=== PATIENT | male | born 1945 | race Caucasian/White ===

== ENCOUNTER 2018-10-27 06:25 | Observation (INO) ==
[2018-10-27] MEDS ORDERED: Pantoprazole Inj 40 MG Vial IV.PUSH ONE (06:41)
--- NOTE | 2018-10-27 06:45 | ED ---
HPI General Chief complaint: GI Bleed Stated complaint: GI Time Seen by Provider: 10/27/18 06:41 Source: patient Mode of arrival: ambulatory Limitations: no limitations History of Present Illness HPI Narrative: 73-year-old male patient with history of hypertension, CAD, currently on aspirin and Plavix, presents to the ER today because he states that he has had about 5 episodes of bloody diarrhea. He did have some abdominal cramping discomfort last night. He denies any nausea, vomiting, fevers, chest pains, trouble breathing, or any other symptoms. He states that he has history of gastritis and gets upper and lower endoscopy done by Dr. Cee due to family history of colon cancer. He had one done last year and it was fine. No history of gastric ulcers. He has been taking Toradol for pain for the last 2 days. Modifying Factors: None Associated Signs & Symptoms: Blood in the stools, diarrhea Risk Factors: None Related Data Home Medications Medication Instructions Recorded Confirmed aspirin [Aspirin Low Dose] 81 mg PO DAILY 10/27/18 10/27/18 clopidogrel [Plavix] 75 mg PO DAILY 10/27/18 10/27/18 glucosamine sulfate [Glucosamine] 750 mg PO BID 10/27/18 10/27/18 hydrocodone-acetaminophen 2 tab PO Q4H 10/27/18 10/27/18 lisinopril 5 mg PO DAILY 10/27/18 10/27/18 lovastatin 20 mg PO DAILY 10/27/18 10/27/18 methocarbamol 750 mg PO QID 10/27/18 10/27/18 metoprolol tartrate 12.5 mg PO BID 10/27/18 10/27/18 temazepam [Restoril] 10/27/18 testosterone cypionate 200 mg IM QWEEK 10/27/18 10/27/18 Allergies Allergy/AdvReac Type Severity Reaction Status Date / Time oyster extract Allergy Severe ANAPHYLAXIS Verified 10/27/18 07:49 penicillin G Allergy Severe HIVES Verified 10/27/18 07:49 Review of Systems ROS: all other systems reviewed are negative PMFSH History History Provided By: Patient Medical History Medical History Bile salt-induced diarrhea (Acute) Chronic kidney disease (Acute) History of heart attack (Acute) Hx of skin malignancy (Acute) Surgical History Surgical History H/O neck surgery (Acute) History of back surgery (Acute) Hx of cholecystectomy (Acute) Social History Social History Substance History: No History of Abuse Smoking Status: Never smoker How Often Do You Have a Drink Containing Alcohol: Monthly or less Recent Travel in [facility] within the Last 8 Weeks: No Recent Out of Country Travel within the Last 8 Weeks: No Exam Narrative Exam Narrative: GENERAL: Well-developed elderly male patient currently in mild distress. Awake and oriented x3. SKIN: Focused skin assessment warm/dry. HEAD: Atraumatic. Normocephalic. EYES: Pupils equal and round. No scleral icterus. No injection or drainage. ENT: No nasal bleeding or discharge. Mucous membranes pink and moist. NECK: Trachea midline. No JVD. CARDIOVASCULAR: Regular rate and rhythm. No murmur appreciated. RESPIRATORY: No accessory muscle use. Clear to auscultation. Breath sounds equal bilaterally. GASTROINTESTINAL: Abdomen soft, non-tender, nondistended. Hepatic and splenic margins not palpable. RECTAL EXAM: No masses or tenderness, stool is red, Hemoccult positive. MUSCULOSKELETAL: No obvious deformities. No clubbing. No cyanosis. No edema. NEUROLOGICAL: Awake and alert. No obvious cranial nerve deficits. Motor grossly within normal limits. Normal speech. PSYCHIATRIC: Appropriate mood and affect; insight and judgment normal. Procedures Hemaprompt Stool Procedural Steps Taken: specimen placed in appropriate test area, developer placed on specimen and control areas and controls appropriately positive and negative Hemaprompt Stool Result: positive Course Initial Documented Vital Signs Temperature 97.5 F L 10/27/18 06:25 Pulse Rate 108 H 10/27/18 06:25 Respiratory Rate 18 10/27/18 06:25 Blood Pressure 133/69 10/27/18 06:25 Pulse Oximetry 96 10/27/18 06:25 Last Documented Vital Signs Temperature 97.5 F L 10/27/18 06:25 Pulse Rate 85 10/27/18 06:51 Respiratory Rate 18 10/27/18 06:30 Blood Pressure 101/66 10/27/18 06:30 Pulse Oximetry 95 10/27/18 06:51 Sign Out Sign Out Data: Patient Sign Out occurred on 10/27/18 at 07:05. Patient's care was discussed, and care was transferred from Yolanda Louis MD to Phillip Centeno DO. Sign Out Comment: Case is signed out to oncoming physician at 7 AM awaiting workup. Likely needs GI evaluation. Disposition based on workup and findings. Last updated by Yolanda Louis MD at 10/27/18 06:47 Medical Decision Making MDM Narrative Medical Screen Exam Complete: Yes Emergency Medical Condition: Yes Differential Diagnosis Differential Diagnosis: GI bleed versus coagulopathy versus gastroenteritis Lab Data Result diagrams: 10/27/18 06:47 10/27/18 06:47 Lab Results 10/27/18 10/27/18 10/27/18 Range/Units 06:47 06:47 06:47 WBC 6.4 (4.0-11.0) th/mm3 RBC 4.44 L (4.50-5.90) mil/mm3 Hgb 14.6 (13.0-17.0) gm/dL Hct 41.8 (39.0-51.0) % MCV 94.1 (80.0-100.0) fL MCH 33.0 (27.0-34.0) pg MCHC 35.0 (32.0-36.0) % RDW 13.9 (11.6-17.2) % Plt Count 157 (150-450) th/mm3 MPV 9.0 (7.0-11.0) fL Neut % (Auto) 67.8 (16.0-70.0) % Lymph % (Auto) 22.4 (9.0-44.0) % Andrews % (Auto) 7.4 (0.0-8.0) % Eos % (Auto) 1.7 (0.0-4.0) % Baso % (Auto) 0.7 (0.0-2.0) % Neut # (Auto) 4.4 (1.8-7.7) th/mm3 Lymph # (Auto) 1.4 (1.0-4.8) th/mm3 Andrews # (Auto) 0.5 (0.0-0.9) th/mm3 Eos # (Auto) 0.1 (0.0-0.4) th/mm3 Baso # (Auto) 0.0 (0.0-0.2) th/mm3 WBC Differential . Differential Comment Auto diff final PT 10.3 (9.8-11.6) sec INR 1.0 Ratio APTT 26.3 (23.4-31.7) sec Sodium 142 (136-145) meq/L Potassium 4.2 (3.5-5.1) meq/L Chloride 109 H (98-107) meq/L Carbon Dioxide 26.2 (21.0-32.0) meq/L Anion Gap 7 (5-15) meq/L BUN 18 (7-18) mg/dL Creatinine 1.51 H (0.60-1.30) mg/dL Estimated GFR 46 L (>89) mL/min Random Glucose 114 H (74-106) mg/dL Calcium 8.1 L (8.5-10.1) mg/dL Total Bilirubin 0.6 (0.2-1.0) mg/dL AST 22 (15-37) U/L ALT 35 (12-78) U/L Alkaline Phosphatase 66 (45-117) U/L Total Protein 6.1 L (6.4-8.2) g/dL Albumin 3.3 L (3.4-5.0) g/dL Blood Type Blood Type Recheck Antibody Screen 10/27/18 Range/Units 06:47 WBC (4.0-11.0) th/mm3 RBC (4.50-5.90) mil/mm3 Hgb (13.0-17.0) gm/dL Hct (39.0-51.0) % MCV (80.0-100.0) fL MCH (27.0-34.0) pg MCHC (32.0-36.0) % RDW (11.6-17.2) % Plt Count (150-450) th/mm3 MPV (7.0-11.0) fL Neut % (Auto) (16.0-70.0) % Lymph % (Auto) (9.0-44.0) % Andrews % (Auto) (0.0-8.0) % Eos % (Auto) (0.0-4.0) % Baso % (Auto) (0.0-2.0) % Neut # (Auto) (1.8-7.7) th/mm3 Lymph # (Auto) (1.0-4.8) th/mm3 Andrews # (Auto) (0.0-0.9) th/mm3 Eos # (Auto) (0.0-0.4) th/mm3 Baso # (Auto) (0.0-0.2) th/mm3 WBC Differential Differential Comment PT (9.8-11.6) sec INR Ratio APTT (23.4-31.7) sec Sodium (136-145) meq/L Potassium (3.5-5.1) meq/L Chloride (98-107) meq/L Carbon Dioxide (21.0-32.0) meq/L Anion Gap (5-15) meq/L BUN (7-18) mg/dL Creatinine (0.60-1.30) mg/dL Estimated GFR (>89) mL/min Random Glucose (74-106) mg/dL Calcium (8.5-10.1) mg/dL Total Bilirubin (0.2-1.0) mg/dL AST (15-37) U/L ALT (12-78) U/L Alkaline Phosphatase (45-117) U/L Total Protein (6.4-8.2) g/dL Albumin (3.4-5.0) g/dL Blood Type O Negative Blood Type Recheck Not needed Antibody Screen Negative Discharge Plan Discharge Disposition Patient Disposition: ED Admit(ED Internal Use Only) Discharge Condition Condition: Serious Discharge Order Discharge Orders: ED Use Only Admit Order (Routine); Ordered 10/27/18 Ordered By: Phillip Centeno Physicians Team ED Provider: Phillip Centeno Primary Care Provider: Goran Montague Rxs /Orders / Referrals /Forms Prescriptions: No Action glucosamine sulfate [Glucosamine] 500 mg Tablet 750 mg PO BID RF: 0 clopidogrel [Plavix] 75 mg Tablet 75 mg PO DAILY RF: 0 aspirin [Aspirin Low Dose] 81 mg Tablet,Delayed Release (Dr/Ec) 81 mg PO DAILY RF: 0 methocarbamol 750 mg Tablet 750 mg PO QID RF: 0 lisinopril 5 mg Tablet 5 mg PO DAILY RF: 0 lovastatin 20 mg Tablet 20 mg PO DAILY RF: 0 metoprolol tartrate 25 mg Tablet 12.5 mg PO BID RF: 0 temazepam [Restoril] 30 mg Capsule RF: 0 hydrocodone-acetaminophen 7.5-325 mg Tablet 2 tab PO Q4H RF: 0 testosterone cypionate 200 mg/mL Kit 200 mg IM QWEEK RF: 0 Discharge Instructions Patient Printed Instructions: Gastrointestinal Bleeding (ED) Discharge Interventions Interventions: Vital Signs Last Done: 10/27/18 06:30 Status ED Status: Admitted Patient
[2018-10-27 06:59] LABS: Baso % (Auto) 0.7 % (0.0-2.0); Eos # (Auto) 0.1 th/mm3 (0.0-0.4); Eos % (Auto) 1.7 % (0.0-4.0); Hematocrit 41.8 % (39.0-51.0); Hemoglobin 14.6 gm/dL (13.0-17.0); Lymph # (Auto) 1.4 th/mm3 (1.0-4.8); Lymph % (Auto) 22.4 % (9.0-44.0); Mean Corpuscular Volume 94.1 fL (80.0-100.0); Mono # (Auto) 0.5 th/mm3 (0.0-0.9); Mono % (Auto) 7.4 % (0.0-8.0); Neut # (Auto) 4.4 th/mm3 (1.8-7.7); Neut % (Auto) 67.8 % (16.0-70.0); Platelet Count 157 th/mm3 (150-450); Red Blood Count 4.44 mil/mm3 (4.50-5.90); Red Cell Distribution Width 13.9 % (11.6-17.2); White Blood Count 6.4 th/mm3 (4.0-11.0)
[2018-10-27 07:08] LABS: Activated Partial Thrombo Time 26.3 sec (23.4-31.7); Prothrombin Time 10.3 sec (9.8-11.6)
[2018-10-27 07:29] LABS: Alanine Aminotransferase 35 U/L (12-78); Albumin 3.3 g/dL (3.4-5.0); Anion Gap 7 meq/L (5-15); Aspartate Aminotransferase 22 U/L (15-37); Blood Urea Nitrogen 18 mg/dL (7-18); Calcium 8.1 mg/dL (8.5-10.1); Carbon Dioxide 26.2 meq/L (21.0-32.0); Chloride 109 meq/L (98-107); Glomerular Filtration Rate 46 mL/min (>89); Glucose,Random 114 mg/dL (74-106); Potassium 4.2 meq/L (3.5-5.1); Sodium 142 meq/L (136-145)
[2018-10-27 07:32] LABS: Alkaline Phosphatase 66 U/L (45-117); Total Protein 6.1 g/dL (6.4-8.2)
[2018-10-27] MEDS ORDERED: Sod Chloride 0.9% Inj 1,000 ML IV.SIG SCH (07:45)
[2018-10-27] MEDS ORDERED: Acetaminophen 325 MG Tablet PO PRN (09:36)
--- NOTE | 2018-10-27 09:55 | P.HPIM ---
History of Present Illness Primary Care Physician: Goran Montague History of Present Illness: Patient is a pleasant 73-year-old male with history of HTN, coronary artery disease, hyperlipidemia, Abarca's esophagus, and chronic kidney disease. Patient presented to the [place] ER (10/27/18) with complaint of 5 episodes of bloody diarrhea. Pt had additional 6 episodes of bloody diarrhea here at [place]. Patient also complained of abdominal cramping which occurred. Patient denied nausea, vomiting, fever. Patient is a former smoker and drinks alcohol daily. Patient has history of coronary artery disease and is taking aspirin and Plavix. Patient has been utilizing (one) left over oral Toradol yesterday for tendonitis. Hemoglobin in the ER was 14.6. Platelet count 157. Coagulation panel within normal limits. BMP showed creatinine elevated at 1.51. Review of outpatient records shows patient's creatinine has been between 1.2 and 1.4 for the last several years with GFR between 55 and 60. Patient's liver enzymes were within normal limits. Patient had an EGD with Dr. Cee (03/12/18) which showed gastritis, esophagitis, and small hiatal hernia. Pathology showed no acute findings. Patient had a colonoscopy with Dr. Cee (03/12/18) which showed diverticulosis in the sigmoid and descending colon and grade 1 hemorrhoids. PMH: 1) hypertension 2) coronary artery disease - pt follows with Dr. Griffith - last [facility] (09/12/16) - small vessel diagonal branch disease 3) hyperlipidemia 4) Abarca's esophagus 5) gastritis 6) diverticulosis 7) chronic kidney disease, stage 3 8) hypogonadism 9) senile purpura 10) insomnia 11) vitamin D deficiency 12) BPH 13) GERD 14) hemorrhoids PSH: 1) laparoscopic cholecystectomy 2) treatment of metatarsal fracture 3) treatment of tibial fracture 4) colonoscopy 5) EGD 6) bilateral LASIK surgery 7) inguinal hernia repair, right 8) ERCP with endoscopic sphincterotomy - perfomred by Dr. Iglesias (03/24/18) revealing mutiple large CBD stones 9) vasectomy 10) umbilical hernia repair FHX: Noncontributory SHX: - - retired - former smoker --> when teenager - drinks alcohol daily. 2-3 mixed drinks daily (rum&coke) and occasional beer - no illicit street drugs ALL: oysters, PCN Medications and Allergies Allergies Allergy/AdvReac Type Severity Reaction Status Date / Time oyster extract Allergy Severe ANAPHYLAXIS Verified 10/27/18 07:49 penicillin G Allergy Severe HIVES Verified 10/27/18 07:49 Home Medications Medication Instructions Recorded Confirmed Type aspirin [Aspirin Low Dose] 81 mg PO DAILY 10/27/18 10/27/18 History glucosamine sulfate [Glucosamine] 750 mg PO BID 10/27/18 10/27/18 History hydrocodone-acetaminophen 2 tab PO Q4H 10/27/18 10/27/18 History lisinopril 5 mg PO DAILY 10/27/18 10/27/18 History lovastatin 20 mg PO DAILY 10/27/18 10/27/18 History methocarbamol 750 mg PO QID 10/27/18 10/27/18 History metoprolol tartrate 12.5 mg PO BID 10/27/18 10/27/18 History temazepam [Restoril] 10/27/18 History testosterone cypionate 200 mg IM QWEEK 10/27/18 10/27/18 History Active Medications: Active Medications Acetaminophen (Tylenol) 650 mg PO Q4H PRN PRN Reason: Temp > 100.4 Al Hydroxide/Mg Hydroxide (Milk Of Magnesia Liq) 30 ml PO Q12H PRN PRN Reason: Mild Constipation Ondansetron HCl (Zofran Inj) 4 mg IV.PUSH Q6H PRN PRN Reason: NAUSEA OR VOMITING Sodium Chloride (Ns Flush) 2 ml IV.FLUSH BID PAUL Sodium Chloride (Ns Flush) 2 ml IV.FLUSH PRN PRN PRN Reason: FLUSH AFTER USING IV ACCESS Physical Exam Vital signs: Last Vital Signs Temp 97.5 F L 10/27/18 06:25 Pulse 85 10/27/18 06:51 Resp 18 10/27/18 06:30 BP 101/66 10/27/18 06:30 Pulse Ox 95 10/27/18 06:51 Results Labs CBC & Chem 7: 10/28/18 13:09 10/28/18 04:37 Caprini VTE Risk Assessment Caprini VTE Risk Assessment: Moderate/High Risk (score >= 2) Caprini Risk Assessment Model: Point Value = 1 Point Value = 2 Point Value = 3 Point Value = 5 Age 41-60 Minor surgery BMI > 25 kg/m2 Swollen legs Varicose veins or History of unexplained or recurrent spontaneous Oral contraceptives or hormone replacement Sepsis (< 1 month) Serious lung disease, including pneumonia (< 1 month) Abnormal pulmonary function Acute myocardial infarction Congestive heart failure (< 1 month) History of inflammatory bowel disease Medical patient at bed rest Age 61-74 Arthroscopic surgery Major open surgery (> 45 min) Laparoscopic surgery (> 45 min) Malignancy Confined to bed (> 72 hours) Immobilizing plaster cast Central venous access Age >= 75 History of VTE Family history of VTE Factor V Leiden Prothrombin [id number] Lupus anticoagulant Anticardiolipin antibodies Elevated serum homocysteine Heparin-induced thrombocytopenia Other congenital or acquired thrombophilia Stroke (< 1 month) Elective arthroplasty Hip, pelvis, or leg fracture Acute spinal cord injury (< 1 month) Prophylaxis Regimen: Total Risk Factor Score Risk Level Prophylaxis Regimen 0-1 Low Early ambulation 2 Moderate Order ONE of the following: *Sequential Compression Device (SCD) *Heparin 5000 units SQ BID 3-4 Higher Order ONE of the following medications: *Heparin 5000 units SQ TID *Enoxaparin/Lovenox 40 mg SQ daily (WT < 150 kg, CrCl > 30 mL/min) *Enoxaparin/Lovenox 30 mg SQ daily (WT < 150 kg, CrCl > 10-29 mL/min) *Enoxaparin/Lovenox 30 mg SQ BID (WT < 150 kg, CrCl > 30 mL/min) AND/OR *Sequential Compression Device (SCD) 5 or more Highest Order ONE of the following medications: *Heparin 5000 units SQ TID (Preferred with Epidurals) *Enoxaparin/Lovenox 40 mg SQ daily (WT < 150 kg, CrCl > 30 mL/min) *Enoxaparin/Lovenox 30 mg SQ daily (WT < 150 kg, CrCl > 10-29 mL/min) *Enoxaparin/Lovenox 30 mg SQ BID (WT < 150 kg, CrCl > 30 mL/min) AND *Sequential Compression Device (SCD) Assessment and Plan Plan Patient is a pleasant 73-year-old male with history of HTN, coronary artery disease, hyperlipidemia, Abarca's esophagus, and chronic kidney disease. Patient presented to the [place] ER (10/27/18) with complaint of 5 episodes of bloody diarrhea. Pt had additional 6 episodes of bloody diarrhea here at [place]. Patient also complained of abdominal cramping which occurred. Patient denied nausea, vomiting, fever. Patient is a former smoker and drinks alcohol daily. Patient has history of coronary artery disease and is taking aspirin and Plavix. Patient has been utilizing (one) left over oral Toradol yesterday for tendonitis. Hemoglobin in the ER was 14.6. Platelet count 157. Coagulation panel within normal limits. BMP showed creatinine elevated at 1.51. Review of outpatient records shows patient's creatinine has been between 1.2 and 1.4 for the last several years with GFR between 55 and 60. Patient's liver enzymes were within normal limits. Patient had an EGD with Dr. Cee (03/12/18) which showed gastritis, esophagitis, and small hiatal hernia. Pathology showed no acute findings. Patient had a colonoscopy with Dr. Cee (03/12/18) which showed diverticulosis in the sigmoid and descending colon and grade 1 hemorrhoids. 1) GIB - h/o abarca's esophagus, gastritis, small external hemorroids - Pt taking plavix & ASA for CAD - recent use of toradol - start IV protonix - follow Hg level - obtain CT A/P - Consult GI - supportive care - SCDs for DVT prophylaxis 2) CAD - pt follows with DrBushra - ASA, plavix, imdur, lisinopril, metoprolol, lovastatin 3) HTN, essential - lisinopril, metoprolol Attending Attestation The exam, history, and the medical decision-making described in the above note were completed with the assistance of the mid-level provider. I reviewed and agree with the findings presented. I attest that I had a [id number] encounter with the patient on the same day, and personally performed and documented my assessment and findings in the medical record. Patient examined. Assessment and plan formulated with Yanet Hopson PA-C. I agree with the above.
--- NOTE | 2018-10-27 09:56 | XR ---
EXAM DATE: 10/27/2018 9:52 AM EST AGE/SEX: 73 years / Male INDICATIONS: Evaluate lung status. Possible G.I bleed. CLINICAL DATA: This is the patient's initial encounter. Patient reports that signs and symptoms have been present for 1 day and indicates a pain score of 0/10. MEDICAL/SURGICAL HISTORY: None. None. [place] [facility] [place]. . FINDINGS: The heart size is normal. There is increased density at the medial right base and infrahilar region. The left lung is clear. No effusions are seen. There is an anterior cervical fusion plate present. CONCLUSION: Right medial base consolidation or atelectasis. Electronically signed by: Howard Peraza MD Board Certified Radiologist 10/27/2018 9:55 AM EST
[2018-10-27] MEDS ORDERED: Methocarbamol 500 MG Tablet PO PRN (11:00)
[2018-10-27] MEDS: Metoprolol Tartrate 25 MG Tablet PO SCH ×2 (11:50→21:07)
[2018-10-27] MEDS: Lisinopril 5 MG Tablet PO SCH (11:50)
--- NOTE | 2018-10-27 16:34 | P.CONGI ---
History of Present Illness Chief complaint: GI bleed due to medication use,coagulopathy History of Present Illness: This is a pleasant 73-year-old male with history of HTN, coronary artery disease on Plavix and ASA, hyperlipidemia, and chronic kidney disease who presents with BRBPR started 5 am. He showed photos on the phone, had about 11 episodes of rectal bleeding. Patient denies nausea, vomiting, abd pain or change in bowels. Patient drinks alcohol daily. States he had left over Toradol which he took the day prior due to aches. Patient denies previous hx of this. Patient had an EGD with Dr. Cee (03/12/18) which showed gastritis, esophagitis, and small hiatal hernia. Pathology showed no acute findings.Patient had a colonoscopy with Dr. Cee (03/12/18) which showed diverticulosis in the sigmoid and descending colon and grade 1 hemorrhoids. <Kapil Liang - Last Filed: 10/29/18 12:30> Review of Systems All other systems reviewed negative except as stated in HPI <Kapil Liang - Last Filed: 10/29/18 12:30> PMFSH - Medical History Medical History: Medical History (Last Reviewed 10/27/18 @ 09:55 by Stephanie Cain) Bile salt-induced diarrhea Chronic kidney disease History of heart attack Hx of skin malignancy - Surgical History Surgical History: Surgical History (Last Reviewed 10/27/18 @ 09:55 by Stephanie Cain) H/O neck surgery History of back surgery Hx of cholecystectomy - Family History Family History: Family History (Last Updated 10/27/18 @ 16:28 by MARIVEL Mercer) Grandparent Colon cancer <Carlito Arnett - Last Filed: 10/27/18 17:56> - History History Provided By: Patient - Medical History Medical History: Medical History (Last Reviewed 10/27/18 @ 09:55 by Stephanie Cain) Bile salt-induced diarrhea Chronic kidney disease History of heart attack Hx of skin malignancy - Surgical History Surgical History: Surgical History (Last Reviewed 10/27/18 @ 09:55 by Stephanie Cain) H/O neck surgery History of back surgery Hx of cholecystectomy - Family History Family History: Family History (Last Updated 10/27/18 @ 16:28 by Khawla Amawi, B[employer]ER) Grandparent Colon cancer - Tobacco History Second Hand Smoke Exposure: No Smoking Status: Never smoker - Alcohol History How Often Do You Have a Drink Containing Alcohol: Monthly or less - Substance Use History Substance History: No History of Abuse - Travel History Recent Travel in the [place] Within the Last 8 Weeks: No Recent Travel Out of the Country Within the Last 8 Weeks: No - Immunization History Tetanus Immunization: <5 Years <Kapil Liang - Last Filed: 10/29/18 12:30> Medications and Allergies Active Medications: Active Medications Acetaminophen (Tylenol) 650 mg PO Q4H PRN PRN Reason: Temp > 100.4 Hydrocodone Bitart/Acetaminophen ([place] 7.5/325) 2 tab PO Q6H PRN PRN Reason: PAIN SCALE 1 TO 10 Al Hydroxide/Mg Hydroxide (Milk Of Magnesia Liq) 30 ml PO Q12H PRN PRN Reason: Mild Constipation Lisinopril (Prinivil) 5 mg PO DAILY [facility] Last Admin: 10/27/18 11:50 Dose: Not Given Methocarbamol (Robaxin) 750 mg PO Q6HR PRN PRN Reason: MUSCLE SPASM Metoprolol Tartrate (Lopressor) 12.5 mg PO BID [facility] Last Admin: 10/27/18 11:50 Dose: Not Given Ondansetron HCl (Zofran Inj) 4 mg IV.PUSH Q6H PRN PRN Reason: NAUSEA OR VOMITING Pantoprazole Sodium (Protonix Inj) 40 mg IV.PUSH Q12H [facility] Pravastatin Sodium (Pravachol) 20 mg PO DAILY [facility] Last Admin: 10/27/18 11:26 Dose: 20 mg Sodium Chloride (Ns Flush) 2 ml IV.FLUSH BID [facility] Sodium Chloride (Ns Flush) 2 ml IV.FLUSH PRN PRN PRN Reason: FLUSH AFTER USING IV ACCESS <Carlito Arnett - Last Filed: 10/27/18 17:56> Active Medications: Active Medications Acetaminophen (Tylenol) 650 mg PO Q4H PRN PRN Reason: Temp > 100.4 Al Hydroxide/Mg Hydroxide (Milk Of Magnesia Liq) 30 ml PO Q12H PRN PRN Reason: Mild Constipation Lisinopril (Prinivil) 5 mg PO DAILY [facility] Last Admin: 10/27/18 11:50 Dose: Not Given Methocarbamol (Robaxin) 750 mg PO Q6HR PRN PRN Reason: MUSCLE SPASM Metoprolol Tartrate (Lopressor) 12.5 mg PO BID [facility] Last Admin: 10/27/18 11:50 Dose: Not Given Ondansetron HCl (Zofran Inj) 4 mg IV.PUSH Q6H PRN PRN Reason: NAUSEA OR VOMITING Pravastatin Sodium (Pravachol) 20 mg PO DAILY [facility] Last Admin: 10/27/18 11:26 Dose: 20 mg Sodium Chloride (Ns Flush) 2 ml IV.FLUSH BID [facility] Sodium Chloride (Ns Flush) 2 ml IV.FLUSH PRN PRN PRN Reason: FLUSH AFTER USING IV ACCESS <Kapil Liang - Last Filed: 10/29/18 12:30> Allergies Allergy/AdvReac Type Severity Reaction Status Date / Time oyster extract Allergy Severe ANAPHYLAXIS Verified 10/27/18 07:49 penicillin G Allergy Severe HIVES Verified 10/27/18 07:49 Home Medications Medication Instructions Recorded Confirmed Type aspirin [Aspirin Low Dose] 81 mg PO DAILY 10/27/18 10/27/18 History glucosamine sulfate [Glucosamine] 750 mg PO BID 10/27/18 10/27/18 History hydrocodone-acetaminophen 2 tab PO Q4H 10/27/18 10/27/18 History lisinopril 5 mg PO DAILY 10/27/18 10/27/18 History lovastatin 20 mg PO DAILY 10/27/18 10/27/18 History methocarbamol 750 mg PO QID 10/27/18 10/27/18 History metoprolol tartrate 12.5 mg PO BID 10/27/18 10/27/18 History temazepam [Restoril] 10/27/18 History testosterone cypionate 200 mg IM QWEEK 10/27/18 10/27/18 History Exam Vital signs: Vital Signs 10/27/18 06:25 10/27/18 06:30 10/27/18 06:51 Temperature 97.5 F L Pulse Rate 108 H 60 85 Respiratory Rate 18 18 Blood Pressure 133/69 101/66 Pulse Oximetry 96 96 95 10/27/18 09:37 10/27/18 10:37 10/27/18 11:25 Temperature Pulse Rate 100 H 88 72 Respiratory Rate 19 18 Blood Pressure 104/63 113/67 107/72 Pulse Oximetry 97 97 10/27/18 13:12 10/27/18 16:54 Temperature 98.0 F 98.7 F Pulse Rate 96 H 86 Respiratory Rate 18 Blood Pressure 112/65 105/63 Pulse Oximetry 97 96 Intake & Output 10/26/18 10/27/18 10/27/18 18:59 06:59 18:59 Intake Total 1000 / 1000 Balance 1000 / 1000 Weight 81.647 kg 82.663 kg Intake: IV 1000 / 1000 NS Inj 1,000 ML @ 1000 mls/hr 1000 / 1000 IV.SIG BOLUS PAUL Rx#:[id number] Other: Date of Last Bowel Movement 10/27/18 Weight On Admission 82.663 kg <Carlito Arnett - Last Filed: 10/27/18 17:56> Vital signs: Vital Signs 10/27/18 06:25 10/27/18 06:30 10/27/18 06:51 Temperature 97.5 F L Pulse Rate 108 H 60 85 Respiratory Rate 18 18 Blood Pressure 133/69 101/66 Pulse Oximetry 96 96 95 10/27/18 09:37 10/27/18 10:37 10/27/18 11:25 Temperature Pulse Rate 100 H 88 72 Respiratory Rate 19 18 Blood Pressure 104/63 113/67 107/72 Pulse Oximetry 97 97 10/27/18 13:12 Temperature 98.0 F Pulse Rate 96 H Respiratory Rate Blood Pressure 112/65 Pulse Oximetry 97 Intake & Output 10/26/18 10/27/18 10/27/18 18:59 06:59 18:59 Intake Total 1000 / 1000 Balance 1000 / 1000 Weight 81.647 kg 82.663 kg Intake: IV 1000 / 1000 NS Inj 1,000 ML @ 1000 mls/hr 1000 / 1000 IV.SIG BOLUS PAUL Rx#:[id number] Other: Weight On Admission 82.663 kg - Constitutional no acute distress - Routine HEENT Exam Head: Present: normocephalic - Routine Respiratory Exam Present: CTA bilaterally - Routine Cardiovascular Exam Present: RRR - Routine Abdominal Exam Present: soft, normoactive bowel sounds. Absent: tenderness, distended - Routine Extremities Exam Absent: cyanosis, edema - Routine Skin Exam Present: intact, dry. Absent: jaundice - Routine Neurological Exam Present: alert, oriented X3 <Kapil Liang - Last Filed: 10/29/18 12:30> Results - Labs CBC & Chem 7: 10/27/18 16:10 10/27/18 06:47 Labs: Laboratory Results - last 24 hr 10/27/18 10/27/18 10/27/18 06:47 06:47 06:47 WBC 6.4 RBC 4.44 L Hgb 14.6 Hct 41.8 MCV 94.1 MCH 33.0 MCHC 35.0 RDW 13.9 Plt Count 157 MPV 9.0 Neut % (Auto) 67.8 Lymph % (Auto) 22.4 [place] % (Auto) 7.4 Eos % (Auto) 1.7 Baso % (Auto) 0.7 Neut # (Auto) 4.4 Lymph # (Auto) 1.4 [place] # (Auto) 0.5 Eos # (Auto) 0.1 Baso # (Auto) 0.0 WBC Differential . Differential Comment Auto diff final PT 10.3 INR 1.0 APTT 26.3 Sodium 142 Potassium 4.2 Chloride 109 H Carbon Dioxide 26.2 Anion Gap 7 BUN 18 Creatinine 1.51 H Estimated GFR 46 L Random Glucose 114 H Calcium 8.1 L Total Bilirubin 0.6 AST 22 ALT 35 Alkaline Phosphatase 66 Total Protein 6.1 L Albumin 3.3 L Blood Type Blood Type Recheck Antibody Screen 10/27/18 10/27/18 06:47 16:10 WBC RBC Hgb 12.0 L D Hct 34.3 L MCV MCH MCHC RDW Plt Count MPV Neut % (Auto) Lymph % (Auto) [place] % (Auto) Eos % (Auto) Baso % (Auto) Neut # (Auto) Lymph # (Auto) [place] # (Auto) Eos # (Auto) Baso # (Auto) WBC Differential Differential Comment PT INR APTT Sodium Potassium Chloride Carbon Dioxide Anion Gap BUN Creatinine Estimated GFR Random Glucose Calcium Total Bilirubin AST ALT Alkaline Phosphatase Total Protein Albumin Blood Type O Negative Blood Type Recheck Not needed Antibody Screen Negative - Imaging Impressions Chest X-Ray 10/27/18 00:00 CONCLUSION: Right medial base consolidation or atelectasis. <Carlito Arnett - Last Filed: 10/27/18 17:56> - Labs CBC & Chem 7: 10/28/18 13:09 10/28/18 04:37 Labs: Laboratory Results - last 24 hr 10/27/18 10/27/18 10/27/18 06:47 06:47 06:47 WBC 6.4 RBC 4.44 L Hgb 14.6 Hct 41.8 MCV 94.1 MCH 33.0 MCHC 35.0 RDW 13.9 Plt Count 157 MPV 9.0 Neut % (Auto) 67.8 Lymph % (Auto) 22.4 [place] % (Auto) 7.4 Eos % (Auto) 1.7 Baso % (Auto) 0.7 Neut # (Auto) 4.4 Lymph # (Auto) 1.4 [place] # (Auto) 0.5 Eos # (Auto) 0.1 Baso # (Auto) 0.0 WBC Differential . Differential Comment Auto diff final PT 10.3 INR 1.0 APTT 26.3 Sodium 142 Potassium 4.2 Chloride 109 H Carbon Dioxide 26.2 Anion Gap 7 BUN 18 Creatinine 1.51 H Estimated GFR 46 L Random Glucose 114 H Calcium 8.1 L Total Bilirubin 0.6 AST 22 ALT 35 Alkaline Phosphatase 66 Total Protein 6.1 L Albumin 3.3 L Blood Type Blood Type Recheck Antibody Screen 10/27/18 06:47 WBC RBC Hgb Hct MCV MCH MCHC RDW Plt Count MPV Neut % (Auto) Lymph % (Auto) [place] % (Auto) Eos % (Auto) Baso % (Auto) Neut # (Auto) Lymph # (Auto) [place] # (Auto) Eos # (Auto) Baso # (Auto) WBC Differential Differential Comment PT INR APTT Sodium Potassium Chloride Carbon Dioxide Anion Gap BUN Creatinine Estimated GFR Random Glucose Calcium Total Bilirubin AST ALT Alkaline Phosphatase Total Protein Albumin Blood Type O Negative Blood Type Recheck Not needed Antibody Screen Negative - Imaging Impressions Chest X-Ray 10/27/18 00:00 CONCLUSION: Right medial base consolidation or atelectasis. <Kapil Liang - Last Filed: 10/29/18 12:30> Assessment and Plan - Attending Attestation The patient was seen and examined. I agree with the assessment and recommendations as above. Will plan colonoscopy tomorrow. <Carlito Arnett - Last Filed: 10/27/18 17:56> - Plan - BRBPR- Several episodes started around 5 am, denies associated symptoms Pt on Plavix and ASA, he is daily drinker, he took left over Toradol the day before Hgb is 14.6 - history of HTN, coronary artery disease on Plavix and ASA, hyperlipidemia, and chronic kidney disease Plan: - Clear liquid - Colonoscopy tomorrow - Golytely today - NPO mn - Hold Plavix - Serial hh - Transfuse as needed - PPI - Case discussed with Dr. Escobedo - Pt seen and examined by Dr. Arnett and myself and this note is written on his behalf. <Kapil Liang - Last Filed: 10/29/18 12:30>
[2018-10-27] MEDS ORDERED: PEG 3350/E-Lyte Soln 4000 ML Bottle PO ONE (17:00)
[2018-10-27 17:07] LABS: Hematocrit 34.3 % (39.0-51.0)
[2018-10-27] MEDS: Pantoprazole Inj 40 MG Vial IV.PUSH SCH (18:22)
[2018-10-27 23:28] LABS: Hematocrit 33.7 % (39.0-51.0); Hemoglobin 11.7 gm/dL (13.0-17.0)
[2018-10-28] MEDS ORDERED: Temazepam 15 MG Capsule PO PRN (00:09)
[2018-10-28 04:52] LABS: Baso % (Auto) 0.5 % (0.0-2.0); Eos # (Auto) 0.1 th/mm3 (0.0-0.4); Eos % (Auto) 0.9 % (0.0-4.0); Hematocrit 29.6 % (39.0-51.0); Hemoglobin 10.5 gm/dL (13.0-17.0); Lymph # (Auto) 1.5 th/mm3 (1.0-4.8); Lymph % (Auto) 24.9 % (9.0-44.0); Mean Corpuscular HGB Conc 35.3 % (32.0-36.0); Mean Corpuscular Hemoglobin 32.7 pg (27.0-34.0); Mean Corpuscular Volume 92.6 fL (80.0-100.0); Mean Platelet Volume 8.8 fL (7.0-11.0); Mono # (Auto) 0.5 th/mm3 (0.0-0.9); Mono % (Auto) 7.8 % (0.0-8.0); Neut # (Auto) 3.9 th/mm3 (1.8-7.7); Neut % (Auto) 65.9 % (16.0-70.0); Platelet Count 124 th/mm3 (150-450); Red Cell Distribution Width 13.8 % (11.6-17.2); White Blood Count 5.8 th/mm3 (4.0-11.0)
[2018-10-28] MEDS: Pantoprazole Inj 40 MG Vial IV.PUSH SCH (04:55)
[2018-10-28 05:27] LABS: Calcium 7.3 mg/dL (8.5-10.1); Carbon Dioxide 29.2 meq/L (21.0-32.0); Potassium 4.2 meq/L (3.5-5.1)
[2018-10-28 05:48] LABS: Albumin 2.7 g/dL (3.4-5.0); Calcium-Albumin Corrected 8.3 mg/dL (8.5-10.1)
[2018-10-28] MEDS: Lisinopril 5 MG Tablet PO SCH (09:46)
[2018-10-28] MEDS: Metoprolol Tartrate 25 MG Tablet PO SCH (09:46)
--- NOTE | 2018-10-28 12:03 | P.PCN ---
Date of procedure: 10/28/18 Pre-op diagnosis: Hematochezia Post-op diagnosis: same (Diverticulosis, internal hemorrhoids) Procedure: THANK YOU FOR THE REFERRAL INDICAITON: Hematochezia PROCEDURE PERFORMED Colonoscopy, diagnostic After informing the patient about procedure and possible complications consent was signed. history and physical were updated. Patient was taken to the procedure room and placed in position. Time out was completed. ANESTHESIA: Adequate sedation was performed by anesthesia provider. Colonoscopy, rectal exam was performed the scope was placed in the rectum advanced under direct video observation to the cecum which was identifed by ileo -cecal valve and appendiceal orifice. The scope was then slowly withdrawn with examination of the mucosa to the rectum. Retro-flexion in the rectum was performed, the scope was withdrawan without any immediate complications. FINDINGS: Terminal ileum : Normal to 10 cm Colon normal colonic mucosa seen throughout there were scattered diverticuli seen through the transverse colon descending colon and sigmoid colon. No stigmata of recent bleeding. No arterial venous malformation, no colon polyps or other masses were seen. Rectum retroflexed in the rectum revealed grade 1 internal hemorrhoid no stigmata of recent bleeding. RECOMMENDATIONS: 1- Supportive care 2- ok to transfer to recovery area then discharge per protocol 3- Repeat colonoscopy in 5 years 4- Resume preoperative diet 5- Resume preoperative medications. 6- The patient is provided with postprocedure educational materials and contact information incase of an emergency. [id number] diet and patient instructions related to diverticular disease will be provided to the patient. Anesthesia: MAC Surgeon: Carlito Arnett Pathology: none sent Condition: stable Disposition: floor
--- NOTE | 2018-10-28 12:22 | P.PNIM ---
Subjective Interval history: Patient seen S/P colonoscopy Patient reports that he has not had any further bloody BMs since 1700 10/27/18 Physical Exam Vital signs: Last Vital Signs Temp 98.4 F 10/28/18 08:00 Pulse 77 10/28/18 08:00 Resp 12 10/28/18 08:00 BP 129/69 10/28/18 08:00 Pulse Ox 97 10/28/18 08:00 Narrative: GENERAL: This is a well-nourished, well-developed patient, in no apparent distress. CARDIOVASCULAR: Regular rate and rhythm RESPIRATORY: Clear to auscultation. Breath sounds equal bilaterally. GASTROINTESTINAL: Abdomen soft, non-tender, nondistended. Normal active bowel sounds MUSCULOSKELETAL: Extremities without clubbing, cyanosis, or edema. NEURO: Alert & Oriented x4 to person, place, time, situation. Moves all ext x4 Results Labs CBC & Chem 7: 10/28/18 13:09 10/28/18 04:37 Assessment and Plan Plan Patient is a pleasant 73-year-old male with history of HTN, coronary artery disease, hyperlipidemia, Abarca's esophagus, and chronic kidney disease. Patient presented to the [place] ER (10/27/18) with complaint of 5 episodes of bloody diarrhea. Pt had additional 6 episodes of bloody diarrhea here at [place]. Patient also complained of abdominal cramping which occurred. Patient denied nausea, vomiting, fever. Patient is a former smoker and drinks alcohol daily. Patient has history of coronary artery disease and is taking aspirin and Plavix. Patient has been utilizing (one) left over oral Toradol yesterday for tendonitis. Hemoglobin in the ER was 14.6. Platelet count 157. Coagulation panel within normal limits. BMP showed creatinine elevated at 1.51. Review of outpatient records shows patient's creatinine has been between 1.2 and 1.4 for the last several years with GFR between 55 and 60. Patient's liver enzymes were within normal limits. Patient had an EGD with Dr. Cee (03/12/18) which showed gastritis, esophagitis, and small hiatal hernia. Pathology showed no acute findings. Patient had a colonoscopy with Dr. Cee (03/12/18) which showed diverticulosis in the sigmoid and descending colon and grade 1 hemorrhoids. 1) GIB - h/o abarca's esophagus, gastritis, small external hemorrhoids - Pt taking plavix & ASA for CAD - continue IV protonix - follow Hgb level - Consult GI, appreciate input - patient S/P colonoscopy 10/28/[address] Arnett Terminal ileum : Normal to 10 cm Colon normal colonic mucosa seen throughout there were scattered diverticuli seen through the transverse colon descending colon and sigmoid colon. No stigmata of recent bleeding. No arterial venous malformation, no colon polyps or other masses were seen. Rectum retroflexed in the rectum revealed grade 1 internal hemorrhoid no stigmata of recent bleeding. RECOMMENDATIONS per GI: 1- Supportive care 2- ok to transfer to recovery area then discharge per protocol 3- Repeat colonoscopy in 5 years 4- Resume preoperative diet 5- Resume preoperative medications. 6- The patient is provided with postprocedure educational materials and contact information incase of an emergency. [id number] diet and patient instructions related to diverticular disease will be provided to the patient. - Hgb on admission 14.6 -> 10.5 (10/28 0400), 10.5 (10/28 1309) - supportive care - SCDs for DVT prophylaxis 2) CAD - pt follows with Dr. Griffith - ASA, plavix, imdur, lisinopril, metoprolol, lovastatin 3) HTN, essential - lisinopril, metoprolol Offered patient continued hospitalization. Patient requesting in go home to care for his who has Alzheimer. DC patient home today in stable condition on a heart healthy diet with weight bearing as tolerated. Patient may continue previous home medications. Outpatient repeat CBC with results to PCP Patient to follow up with PCP and GI Patient also to follow up with Dr. Griffith regarding need to continue Plavix and Aspirin Attending Attestation The exam, history, and the medical decision-making described in the above note were completed with the assistance of the mid-level provider. I reviewed and agree with the findings presented. I attest that I had a [id number] encounter with the patient on the same day, and personally performed and documented my assessment and findings in the medical record. Patient examined. Assessment and plan formulated with Yanet Hopson PA-C. I agree with the above. Progress Note: Quality VTE Deep Vein Thrombosis/Pulmonary Embolism Present on Admission: No
[2018-10-28 12:47] VITALS: BP 95/50; PULSE 63; RESP 16; TEMP 98.7; O2SAT 96
[2018-10-28 14:35] LABS: Hematocrit 29.7 % (39.0-51.0); Hemoglobin 10.5 gm/dL (13.0-17.0)
== END 2018-10-28 15:30 | disposition home or self-care (01) ==
LOC: NEPC 06:25 → NEDA 08:07 → INTOOBSV 08:07 → NEPGCP 10:38 → NEPFCDU 13:55
PROVIDERS: ADMIT Hospitalist; ATTEND Hospitalist
PROC: COLONOS (2018-10-28 11:03)
CPT/HCPCS: 71010; 71045; 80048; 80053; 82040; 85014; 85018; 85025; 85610; 85730; 86850; 86900; 86901; 90774; 90784; 96374; 96376; 97162; 99285; C8952; C9113; G0378; G8987; G8988; J7030